=== PATIENT | male | born 1935 | race Caucasian/White ===

== ENCOUNTER → 2016-07-03 | Outpatient (CLI) | payer MEDICARE, OTHER ==
--- NOTE | 2016-07-03 14:51 | RADRPT ---
PROCEDURE: Fluoroscopic guided catheter removal. CLINICAL INDICATION: Gastrostomy tube no longer required as the patient is able to eat. TECHNIQUE: Prior to the procedure, informed consent was obtained. Risks including bleeding and inf ection, were explained to the patient. The patient understood and was willing to proceed. A procedur al pause was performed. The patient's name, date of , and procedure to be performed were [facility]. The gastrostomy balloon was deflated and the gastrostomy tube was removed. A total of 0.1 minutes of fluoroscopy time was used. COMPARISON: Gastrostomy tube placement on 08/01/2015. FINDINGS: The postprocedure image demonstrates complete removal of the gastrostomy tube. IMPRESSION: 1. Fluoroscopic guided removal of gastrostomy tube. RPTAT: [facility] .Steev Rollins MD, MD Date Time Electronically viewed and signed by .Steve Rollins MD, on 07/03/2016 14:50 .R/
== END | disposition home or self-care (01) ==
LOC: RAD 12:39 → EDSTATUS 13:00
PROVIDERS: ATTEND Internal Medicine Gastroenterology
DX: Z43.1 Encounter for attention to gastrostomy (principal); C34.91 Malignant neoplasm of unspecified part of right bronchus or lung
CPT/HCPCS: 36589